=== PATIENT | male | born 1965 | race Caucasian/White ===

== ENCOUNTER 2018-07-23 13:40 | Emergency (ER) | payer OTHER ==
[~2018-07-23] VITALS: Ht 170.2 cm; Wt 97.5 kg
[~2018-07-23 13:40] MED LIST: DIOVAN320 MG; NORVASC10 MG
[2018-07-23] MEDS ORDERED: ASA81 MG (14:27)
[2018-07-23] MEDS ORDERED: METFORMIN HYDRO25 GM (14:27)
[2018-07-23] MEDS ORDERED: METFORMIN HCL500 MG (14:33)
[2018-07-23] MEDS ORDERED: ATENOLOL25 MG (14:34)
== END 2018-07-23 18:37 | disposition home or self-care (01) ==
LOC: ER 13:40
DX: S90.32XA Contusion of left foot, initial encounter (principal); X58.XXXA Exposure to other specified factors, initial encounter; Y93.89 Activity, other specified; Y92.89 Other specified places as the place of occurrence of the external cause; Y99.8 Other external cause status